=== PATIENT | female | born 1940 | race Caucasian/White ===

== ENCOUNTER 2018-08-14 14:46 | Emergency (ER) | payer MEDICARE, MEDICAID ==
--- NOTE | 2018-08-14 15:26 | ER Document Report ---
ED Medical Screen (RME) - General Chief Complaint: Post Surgical Pain Stated Complaint: LEG SWELLING/POST SURGERY Time Seen by Provider: 08/14/18 15:16 Mode of Arrival: Wheelchair Information source: Patient Notes: 78-year-old female presents emergency department with complaints of right calf and right posterior leg pain. Patient states that she had a femoral-popliteal bypass surgery done 13 days ago in [place] by Dr. Castro. Patient states that the swelling is been present since the surgery. She states that the pain is what is worsening. Patient was scheduled to have physical therapy today but was unable to have it done secondary to the pain. Patient is concerned about a possible blood clot. Patient is on Eliquis. She denies any trauma or injury. No fever, chills, numbness, tingling, weakness. I have greeted and performed a rapid initial assessment of this patient. A comprehensive ED assessment and evaluation of the patient, analysis of test results and completion of the medical decision making process will be conducted by additional ED providers. PHYSICAL EXAMINATION: GENERAL: Well-appearing, well-nourished and in no acute distress. HEAD: Atraumatic, normocephalic. EYES: Pupils equal round extraocular movements intact, conjunctiva are normal. ENT: Nares patent NECK: Normal range of motion LUNGS: No respiratory distress Musculoskeletal: Normal range of motion. Tenderness to palpation of the R calf, R popliteal area. 2+ Dorsalis pedis pulse. Normal color in the RLE. PSYCH: Normal mood, normal affect. SKIN: Warm, Dry, normal turgor, no rashes or lesions noted. TRAVEL OUTSIDE OF THE U[place] IN LAST 30 DAYS: No - Related Data Allergies/Adverse Reactions: morphine Allergy (Verified 08/14/18 14:48) Penicillins Allergy (Verified 08/14/18 14:48) Past Medical History - Social History Chew tobacco use (# tins/day): No Frequency of alcohol use: None Drug Abuse: None - Past Medical History Cardiac Medical History: Reports: Hx Hypercholesterolemia, Hx Hypertension Pulmonary Medical History: Reports: Hx COPD Renal/ Medical History: Denies: Hx Peritoneal Dialysis Past Surgical History: Reports: Hx Appendectomy, Hx Cardiac Catheterization, Hx Hysterectomy, Hx Orthopedic Surgery - hip, hand, Hx Tonsillectomy, Hx Vascular Surgery - fem pop Physical Exam - Vital signs Vitals: Temp Pulse Resp BP Pulse Ox 97.8 F 92 12 125/70 97 08/14/18 14:52 08/14/18 14:52 08/14/18 14:52 08/14/18 14:52 08/14/18 14:52 Course - Vital Signs Vital signs: Temp Pulse Resp BP Pulse Ox 97.8 F 92 12 125/70 97 08/14/18 14:52 08/14/18 14:52 08/14/18 14:52 08/14/18 14:52 08/14/18 14:52
--- NOTE | 2018-08-14 17:07 | ER Document Report ---
ED General - General Mode of Arrival: Wheelchair Information source: Patient, Relative TRAVEL OUTSIDE OF THE U.S. IN LAST 30 DAYS: No - HPI Onset: Yesterday Onset/Duration: Gradual Severity: Moderate Associated symptoms: denies: Shortness of breath Similar symptoms previously: No Recently seen / treated by doctor: Yes - Dr. Delbert Castro vascular surgeon - General Chief Complaint: Post Surgical Pain Stated Complaint: LEG SWELLING/POST SURGERY Time Seen by Provider: 08/14/18 15:16 - HPI Notes: Is a 78-year-old female with recent femoral to popliteal pass approximately 13 days ago seen at [facility] by Dr. Castro who presents to the emergency department for pain and swelling in her right leg. She endorses that the swelling has been present since postop but has gotten worse over the last 24 hours and pain has increased behind her right knee. She denies fevers, chills, shortness of breath , chest pain, denies nausea, vomiting. Per her daughter at the bedside, they called patient's surgeon for guidance and were directed to come to the emergency department with concern for a DVT. (NICOLE LOVETT) - Related Data Allergies/Adverse Reactions: morphine Allergy (Verified 08/14/18 14:48) Penicillins Allergy (Verified 08/14/18 14:48) Past Medical History - General Information source: Patient - Social History Smoking Status: Former Smoker Chew tobacco use (# tins/day): No Frequency of alcohol use: None Drug Abuse: None Family History: Reviewed & Not Pertinent Patient has suicidal ideation: No Patient has homicidal ideation: No - Past Medical History Cardiac Medical History: Reports: Hx Hypercholesterolemia, Hx Hypertension Pulmonary Medical History: Reports: Hx COPD Past Surgical History: Reports: Hx Appendectomy, Hx Cardiac Catheterization, Hx Hysterectomy, Hx Orthopedic Surgery - hip, hand, Hx Tonsillectomy, Hx Vascular Surgery - fem pop Review of Systems - Review of Systems Constitutional: No symptoms reported. denies: Chills, Fever, Malaise EENT: No symptoms reported. denies: See HPI, Eye pain, Eye discharge, Blurred vision, Tearing, Double vision, Ear pain, Ear discharge, Nose pain, Nose congestion, Nose discharge, Sinus pressure, Sinus discharge, Throat pain, Difficulty swallowing, Throat swelling, Mouth pain, Mouth swelling, Dental problem, Vertigo, Other Cardiovascular: Edema - 1+ pitting edema R calf and foot. denies: Chest pain, Dyspnea Respiratory: No symptoms reported. denies: Short of breath Gastrointestinal: No symptoms reported Genitourinary: No symptoms reported Female Genitourinary: No symptoms reported Musculoskeletal: No symptoms reported, Joint pain, Muscle pain, Leg swelling, Ankle swelling Skin: No symptoms reported Hematologic/Lymphatic: No symptoms reported Neurological/Psychological: No symptoms reported Physical Exam - Vital signs Interpretation: Normal - General General appearance: Appears well In distress: None - HEENT Head: Normocephalic Eyes: Normal Extraocular movements intact: Yes - Respiratory Respiratory status: No respiratory distress Chest status: Nontender Breath sounds: Normal Chest palpation: Normal - Cardiovascular Rhythm: Regular Heart sounds: Normal auscultation, S1 appreciated, S2 appreciated Murmur: Yes Diastolic murmur grade 1-6: 2 Pulses: Absent: Posterior tibial - absent to palpation, flow detected on Doppler , Dorsalis pedis - absent to palpation, flow detected on Doppler Normal capillary refill: Yes - Abdominal Inspection: Normal Distension: No distension - Extremities General upper extremity: Normal inspection General lower extremity: Edema - Edema right distal lower extremity, 1+ pitting edema or erythema Knee: Tender - Tenderness to palpation R popliteal fossa Calf: Tender - Right calf tender to palpation - Neurological Neuro grossly intact: Yes Cognition: Normal Orientation: AAOx4 Eleazar Coma Scale Eye Opening: Spontaneous [place] Coma Scale Verbal: Oriented [place] Coma Scale Motor: Obeys Commands [place] Coma Scale Total: 15 Speech: Normal - Psychological Associated symptoms: Normal affect, Normal mood - Skin Skin Temperature: Warm Skin Moisture: Dry Skin Color: Normal, Erythema - Right distal lower extremity Irregularity with: Swelling - Right distal lower extremity - Vital signs Vitals: Temp Pulse Resp BP Pulse Ox 97.8 F 92 12 125/70 97 08/14/18 14:52 08/14/18 14:52 08/14/18 14:52 08/14/18 14:52 08/14/18 14:52 Course - Re-evaluation Re-evalutation: 08/15/18 14:37 Patient unit in 13 days after femoropopliteal bypass performed at [facility] by Dr. Castro. Patient coming in for right leg swelling and pain behind the right popliteal fossa. Arterial duplex and Doppler of the leg were performed. This was discussed over the phone with Dr. Smith stating that the grafts are patent flow to the distal leg although not optimized which should be expected and the patient with a history of PAD. Patient physical examination shows a warm leg cap refill of the greater toe less than 2 seconds. Patient also has a hematoma in the popliteal fossa with no flow within the hematoma. Otherwise no acute findings on the arterial duplex or the Doppler. Patient's findings were discussed with Dr. Saenz vascular surgery at [facility] for Dr. Castro. Agrees with continue supportive treatment and the patient can follow-up in his office as needed. Patient is to continue home medications elevate the leg warm packs to the back of the leg where the hematoma was formed. Patient is to return to ER if symptoms worsen. Family does state some concern about redness around the suture sites I did discuss this with Dr. Saenz personal evaluation this looks to be more reactive than infectious. There is no purulent material patient is afebrile Dr. Saenz's agree at this time no need for antibiotics. Patient discharged home. (ZAMZAM RENEE) 08/14/18 17:[address] Renee. Reevaluation showed swelling to the right calf and foot with 1+ pitting edema. Compartments were soft Dr. Renee performed ultrasound examination and observed flow to the dorsalis pedis and the posterior tibialis arteries, although the vessels were small. Arterial Doppler has been ordered and still pending. (NICOLE LOVETT) - Vital Signs Vital signs: Temp Pulse Resp BP Pulse Ox 97.8 F 88 19 122/77 95 08/14/18 14:52 08/14/18 20:08 08/14/18 20:08 08/14/18 20:08 08/14/18 20:08 Discharge - Discharge Clinical Impression: History of femoropopliteal bypass, Right leg swelling, Hematoma popliteal fossa Disposition: HOME, SELF-CARE Instructions: Dependent Edema ([facility]) Additional Instructions: Arterial duplex and the Doppler did not show any signs of blood clot in your leg at this time he did have flow distal to your grafts are grass or open the ultrasound does show signs of a hematoma approximately 4 cm in the popliteal fossa. He may place warm packs behind the knee to help out with pain. He can elevate her leg to help out with any swelling. Continue on her home medication regimen. Return to the ER for any concerning issues follow-up with your vascular surgeon as needed.
[2018-08-14 20:10] VITALS: BP 122/77
--- NOTE | 2018-08-15 08:24 | XCELERA REPORT ---
[address] [facility] [place] [address] [facility] Ext[facility] Venous Evaluation Procedure: The veins were evaluated for patency, spontaneous and phasic flow from the Common Femoral down to the infrageniculate vessles, on the right. Right Sided Venous Evaluation Edema, post surgical changes noted. Normal vessel filling wall to wall, compression and augmentation as well as Colour flow down to the infrageniculate veins. Critical Findings Discussed with Dr Bunch,. Interpretation Summary No duplex evidence of DVT or obstruction in the right lower extremity nor in the left Common Femoral vein. Name: NEVA MCKEON Age: 78 yrs Gender: Female : 1940 Patient Status: Emergency Patient Location: ER Study Date: 08/14/2018 06:25 PM Reason For Study: Right leg swelling Ordering Physician: NICOLE LOVETT PA-C Performed By: Agnes Vargas : NICOLE LOVETT PA-C > Armando Smith
--- NOTE | 2018-08-15 08:32 | XCELERA REPORT ---
[address] [address] Lower Extremity Arterial Evaluation Name: NEVA MCKEON Age: 78 yrs Gender: Female : 1940 Patient Status: Emergency Patient Location: ER Study Date: 08/14/2018 05:32 PM Procedure: A color flow and duplex scan of the lower extremity arteries was performed on the right with velocity and waveform anaylsis. Reason For Study: Fem pop bypass 13 days ago. Increased pain to site Ordering Physician: ANGIE HANCOCK Performed By: Agnes Vargas Measurements and Calculations Right Left GLASS RIBBON MACHINE OPERATOR ASSISTANT PSV 41.6 cm/sec Prox PFA PSV -32.2 cm/sec Dist SFA PSV 41.0 cm/sec Prox Pop A PSV 36.2 cm/sec Dist Pop A PSV -40.1 cm/sec Dist ALINE PSV 41.0 30.4 cm/sec Dist TOP PRECIPITATOR OPERATOR PSV 42.7 cm/sec Donavan Pedis PSV -23.4 cm/sec Right Side Arterial Evaluation Low to low velocity and Monophasic waveforms noted from the Common Femoral artery to the infrageniculate vessels. Sustained through an apparent Femero Femoral graft and a right Femero Popliteal graft. Including sampling in the graft. The anastomotic sites cannot be described, due to edema, post surgical changes. A non vascular, lucent mass, 4.6 x 4.2 x 1.3 cms is noted in the Popliteal fossa. 50-99 % stenosis at the Common Femoral artery. Findings transmitted, to the infrageniculate level. Ankle Brachial index was not done. Left Side Arterial Evaluation Monophasic flow in the Anterior Tibial artery. Critical Findings Discussed with Dr Bunch. Interpretation Summary Vascular flow maintained throughout graft and distally. Seems to reflect fixed proximal disease. A mass in the right Popliteal fossa could represent a hematoma or a Popliteal cyst. : ANGIE HANCOCK > Armando Smith
== END 2018-08-14 20:08 | disposition home or self-care (01) ==
LOC: ER 14:46
DX: I97.638 Postprocedural hematoma of a circulatory system organ or structure following other circulatory system procedure (principal); M79.89 Other specified soft tissue disorders; R40.2412 Glasgow coma scale score 13-15, at arrival to emergency department; R06.02 Shortness of breath; E78.00 Pure hypercholesterolemia, unspecified; I10 Essential (primary) hypertension; J44.9 Chronic obstructive pulmonary disease, unspecified; Z88.0 Allergy status to penicillin; Z88.5 Allergy status to narcotic agent; Z98.890 Other specified postprocedural states; Z87.891 Personal history of nicotine dependence; Z90.710 Acquired absence of both cervix and uterus
CPT/HCPCS: 93926; 93971; 99284

== ENCOUNTER 2019-11-19 16:08 | Emergency (ER) | payer MEDICARE, MEDICAID ==
[2019-11-19] MEDS ORDERED: HYDROCODONE/ACETAMINOPHEN 5-325 MG TABLET PO ONE (17:13)
--- NOTE | 2019-11-19 17:14 | ER Document Report ---
ED Medical Screen (RME) - General Stated Complaint: FALL,BACK PAIN Time Seen by Provider: 11/19/19 17:12 Primary Care Provider: GENIE FATIMA FNP-C [Primary Care Provider] - Follow up as needed Notes: 79-year-old female who is on Eliquis presents for mechanical fall. Patient states she slipped and fell back and hit her back. Tenderness to left thoracic and lumbar paraspinal muscles. No contusion noted. Patient denies hitting her head or LOC. I have greeted and performed a rapid initial assessment of this patient. A comprehensive ED assessment and evaluation of the patient, analysis of test results and completion of the medical decision making process with be conducted by additional ED providers. TRAVEL OUTSIDE OF THE [place] IN LAST 30 DAYS: No - Related Data Allergies/Adverse Reactions: morphine Allergy (Verified 08/14/18 14:48) Penicillins Allergy (Verified 08/14/18 14:48) Past Medical History - Past Medical History Cardiac Medical History: Reports: Hx Hypercholesterolemia, Hx Hypertension Pulmonary Medical History: Reports: Hx COPD Renal/ Medical History: Denies: Hx Peritoneal Dialysis Past Surgical History: Reports: Hx Appendectomy, Hx Cardiac Catheterization, Hx Hysterectomy, Hx Orthopedic Surgery - hip, hand, Hx Tonsillectomy, Hx Vascular Surgery - fem pop Physical Exam - Vital signs Vitals: Temp Pulse Resp BP Pulse Ox 97.9 F 77 18 172/87 H 100 11/19/19 16:25 11/19/19 16:25 11/19/19 16:25 11/19/19 16:25 11/19/19 16:25 Course - Vital Signs Vital signs: Temp Pulse Resp BP Pulse Ox 97.9 F 77 18 172/87 H 100 11/19/19 16:25 11/19/19 16:25 11/19/19 16:25 11/19/19 16:25 11/19/19 16:25 Doctor's Discharge - Discharge Referrals: GENIE FATIMA FNP-C [Primary Care Provider] - Follow up as needed
--- NOTE | 2019-11-19 17:51 | RADIOLOGY REPORT (SQ) ---
EXAM DESCRIPTION: T SPINE AP/LAT COMPLETED DATE/TIME: 11/19/2019 5:33 pm REASON FOR STUDY: mechanical fall, back pain COMPARISON: None. NUMBER OF VIEWS: Two views. TECHNIQUE: AP and lateral radiographic images acquired of the thoracic spine. LIMITATIONS: None. FINDINGS: MINERALIZATION: Normal. ALIGNMENT: Scoliosis convex right thoracolumbar. VERTEBRAE: No fracture or bone lesion. Maintained height, normal segmentation. DISCS: No significant loss of height or significant narrowing. No large osteophytes. HARDWARE: None in the spine. MEDIASTINUM AND SOFT TISSUES: Normal heart size and aortic contour. No soft tissue abnormality. VISUALIZED LUNG TALBOT: Clear. OTHER: No other significant finding. IMPRESSION: No acute fracture. TECHNICAL DOCUMENTATION: JOB ID: [id number] 2010 [employer]- All Rights Reserved Reading location - IP/workstation name: [email or web address]
--- NOTE | 2019-11-19 17:54 | RADIOLOGY REPORT (SQ) ---
EXAM DESCRIPTION: L SPINE WHOLE COMPLETED DATE/TIME: 11/19/2019 5:33 pm REASON FOR STUDY: mechanical fall, back pain COMPARISON: None. NUMBER OF VIEWS: Five views including obliques. TECHNIQUE: AP, lateral, oblique, and sacral radiographic images acquired of the lumbar spine. LIMITATIONS: None. FINDINGS: MINERALIZATION: Normal. SEGMENTATION: Normal. No transitional anatomy. ALIGNMENT: Anterolisthesis L4 on L5. Generalized scoliosis right thoracolumbar and left lumbar. VERTEBRAE: Maintained height. No fracture or worrisome bone lesion. DISCS: Multilevel marked degenerative disc disease with disc space narrowing. Most severe L3-4. POSTERIOR ELEMENTS: Pedicles and facets are intact. No pars defect or posterior arch defects. HARDWARE: None in the spine. PARASPINAL SOFT TISSUES: Normal. PELVIS: Intact as visualized. No fractures or worrisome bone lesions. SI joints intact. OTHER: No other significant finding. IMPRESSION: Scoliosis, degenerative disc disease. No acute findings. TECHNICAL DOCUMENTATION: JOB ID: [id number] 2010 [employer]- All Rights Reserved Reading location - IP/workstation name: [email or web address]
--- NOTE | 2019-11-19 20:23 | RADIOLOGY REPORT (SQ) ---
XR RIBS UNILATERAL WITH CHEST CLINICAL STATEMENT: left rib pain COMPARISON: None FINDINGS: Cardiomediastinal silhouette is within normal limits. There is no focal lung consolidation or pleural effusion. No evidence of pulmonary edema or pneumothorax. Right midlung calcified granuloma. Left ribs are intact. IMPRESSION: No acute cardiopulmonary disease. No evidence for left rib fracture.
[2019-11-19 20:54] VITALS: BP 163/81
--- NOTE | 2019-11-19 22:20 | ER Document Report ---
Entered by MATILDE ESQUIVEL SCRIBE 11/19/19 0413 Acting as scribe for:FRANCHESCA EB MD ED General - General Chief Complaint: Fall Injury Stated Complaint: FALL,BACK PAIN Time Seen by Provider: 11/19/19 17:12 Primary Care Provider: GENIE FATIMA FNP-C [ALLIED HEALTH PROFESSIONAL] - Follow up as needed Information source: Patient, Relative Notes: 79 year old female presents to the emergency department after a fall this morning. Patient describes that she fell onto her bed on her back. Patient was laying there for 10 minutes before relative found her and helped her up. Patient describes a back pain that "hurts me so bad" and "every breathe I take hurts". Patient denies hitting her head and loss of consciousness. TRAVEL OUTSIDE OF THE [place] IN LAST 30 DAYS: No - Related Data Allergies/Adverse Reactions: morphine Allergy (Verified 08/14/18 14:48) Penicillins Allergy (Verified 08/14/18 14:48) Home Medications: [facility] Past Medical History - General Information source: Patient, Relative - Social History Smoking Status: Former Smoker - quit 20 years ago Cigarette use (# per day): No Chew tobacco use (# tins/day): No Frequency of alcohol use: None Drug Abuse: None Lives with: Family Family History: Reviewed & Not Pertinent Patient has suicidal ideation: No Patient has homicidal ideation: No - Past Medical History Cardiac Medical History: Reports: Hx Hypercholesterolemia, Hx Hypertension Pulmonary Medical History: Reports: Hx COPD Past Surgical History: Reports: Hx Appendectomy, Hx Cardiac Catheterization, Hx Hysterectomy, Hx Orthopedic Surgery - hip, hand, Hx Tonsillectomy, Hx Vascular Surgery - fem pop Review of Systems - Review of Systems Constitutional: denies: Fever EENT: No symptoms reported Cardiovascular: No symptoms reported Respiratory: No symptoms reported Gastrointestinal: No symptoms reported Genitourinary: denies: Hematuria, Retention Female Genitourinary: No symptoms reported Musculoskeletal: See HPI, Back pain Skin: No symptoms reported Hematologic/Lymphatic: No symptoms reported Neurological/Psychological: No symptoms reported -: Yes All other systems reviewed and negative Physical Exam - Vital signs Vitals: Temp Pulse Resp BP Pulse Ox 97.9 F 77 18 172/87 H 100 11/19/19 16:25 11/19/19 16:25 11/19/19 16:25 11/19/19 16:25 11/19/19 16:25 - Notes Notes: Physical Exam: General: Alert, appears well. HEENT: Normocephalic. Atraumatic. PERRL. Extraocular movements intact. Oropharynx clear. Neck: Supple. Non-tender. Respiratory: No respiratory distress. Clear and equal breath sounds bilaterally. Cardiovascular: Regular rate and rhythm. Abdominal: Normal Inspection. Non-tender. No distension. Normal Bowel Sounds. Back: No gross abnormalities. Extremities: Moves all four extremities. Upper extremities: Normal inspection. Normal ROM. Lower extremities: Normal inspection. No edema. Normal ROM. Neurological: Normal cognition. AAOx4. Normal speech. Psychological: Normal affect. Normal Mood. Skin: Warm. Dry. Normal color. Course - Re-evaluation Re-evalutation: 11/19/19 22:16 Patient ambulate in the [facility] with her walker with wheels. Patient ambulating skills appear to be normal. - Vital Signs Vital signs: Temp Pulse Resp BP Pulse Ox 97.6 F 82 16 163/81 H 100 11/19/19 20:53 11/19/19 20:53 11/19/19 20:53 11/19/19 20:53 11/19/19 20:53 - Diagnostic Test Radiology reviewed: Image reviewed, Reports reviewed Radiology results interpreted by me: 11/19/19 22:17 Patient had plain film x-rays of her 1 view chest with left rib details. Thoracic spine and lumbar spine series. All x-rays did not show any acute process of any fractures. She had scoliosis of her spine degenerative joint disease with no fractures no pneumothorax and no other acute finding noted. Discharge - Discharge Clinical Impression: Accidental fall, Contusion of rib on left side, Back pain Condition: Stable Disposition: HOME, SELF-CARE Additional Instructions: Rib Contusion You have been diagnosed as having bruised ribs. It will usually take a few weeks for these injured ribs to heal. You should cough or take a deep breath at least every hour or two to prevent lung complications. You should not engage in any strenuous physical activity until released by your physician. The usual rule is "if it hurts, don't do it." Return if you develop any of the following: (1) Fever or chills. (2) Persistent cough, coughing up blood, or shortness of breath. (3) Increasing pain. (4) Weakness, lightheadedness, or fainting. Recommend that you continue to take Tylenol as needed for pain. No prescriptions at this time. Referrals: GENIE FATIMA, W[employer] ROPE FABRICATION SUPERVISOR-C [ALLIED HEALTH PROFESSIONAL] - Follow up as needed I personally performed the services described in the documentation, reviewed and edited the documentation which was dictated to the scribe in my presence, and it accurately records my words and actions.
== END 2019-11-19 22:27 | disposition home or self-care (01) ==
LOC: ER 16:08
DX: S20.20XA Contusion of thorax, unspecified, initial encounter (principal); M54.9 Dorsalgia, unspecified; W19.XXXA Unspecified fall, initial encounter; W22.03XA Walked into furniture, initial encounter; M41.9 Scoliosis, unspecified; M47.9 Spondylosis, unspecified; I10 Essential (primary) hypertension; J44.9 Chronic obstructive pulmonary disease, unspecified; Z88.6 Allergy status to analgesic agent; Z88.5 Allergy status to narcotic agent; Z87.891 Personal history of nicotine dependence
CPT/HCPCS: 72110; 71101; 72070; A9270; 99283